=== PATIENT | male | born 1965 | race Caucasian/White ===

== ENCOUNTER → 2018-08-08 | Outpatient (CLI) | payer SELFPAY ==
--- NOTE | 2018-08-08 11:55 | XR ---
EXAMINATION TYPE: XR chest 2V DATE OF EXAM: 08/08/2018 COMPARISON: NONE HISTORY: Cough TECHNIQUE: Frontal and lateral views of the chest are obtained. FINDINGS: There is no focal air space opacity, pleural effusion, or pneumothorax seen. The cardiac silhouette size is within normal limits. The osseous structures are intact. There are prominent spring g volumes with flattening the hemidiaphragms possibly indicative of COPD. Bronchial wall thickening i s noted. IMPRESSION: Correlate for bronchitis.
== END | disposition home or self-care (01) ==
LOC: RADXRYALE 09:59
PROVIDERS: ATTEND Internal Medicine
DX: R05 Cough (principal)
CPT/HCPCS: 71046

== ENCOUNTER → 2018-09-21 | Day surgery (SDC) | payer SELFPAY ==
[2018-09-19 11:18] VITALS: BMI 28.1
[~2018-09-21] MED LIST: LACTATED RINGERS 1,000 ML IV SCH; LIDOCAINE 1% 20 ML VIAL (10MG/ML) FOR IV START INTRADERMA PRN; PROPOFOL 10 MG/ML 20 ML VIAL IV ONE
[2018-09-21 08:42] VITALS: RESP 16; TEMP 97.8
--- NOTE | 2018-09-21 09:06 | P.PCN ---
Date of Procedure: 09/21/18 Procedure(s) Performed: BRIEF HISTORY: Patient is a 54-year-old pleasant male, scheduled for an elective colonoscopy as a part of screening for colon neoplasia. PROCEDURE PERFORMED: Colonoscopy. PREOPERATIVE DIAGNOSIS: Screening For colon cancer. IV sedation per Anesthesia. PROCEDURE: After informed consent was obtained, the patient, was brought into the endoscopy unit. IV sedation was administered by Anesthesia under continuous monitoring. Digital rectal examination was normal. Initially the Olympus CF-160 flexible video colonoscope was then inserted in the rectum, gradually advanced into the cecum without any difficulty. Careful examination was performed as the scope was gradually being withdrawn. Ileocecal valve and the appendiceal orifice were visualized and appeared normal. Prep was excellent. Mucosa of the cecum, ascending colon, transverse colon, descending colon, sigmoid colon, and rectum appeared normal. Scattered sigmoid diverticulosis. Retroflexion was performed in the rectum and no lesions were seen. The patient tolerated the procedure well. IMPRESSION: Normal-appearing colon from rectum to cecum with no evidence of colorectal neoplasia Scattered sigmoid diverticulosis . RECOMMENDATIONS: Findings of this examination were discussed with the patient as well as his family. She was advised to have a repeat screening colonoscopy in 10 years.
[2018-09-21 09:12] VITALS: BP 99/60; PULSE 58
== END | disposition home or self-care (01) ==
LOC: ORWHC2ENDO 07:24 → EDBD 11:35
PROVIDERS: ATTEND Internal Medicine Gastroenterology
DX: Z12.11 Encounter for screening for malignant neoplasm of colon (principal); K57.30 Diverticulosis of large intestine without perforation or abscess without bleeding; F17.210 Nicotine dependence, cigarettes, uncomplicated
CPT/HCPCS: J2704; G0121; 45378

== ENCOUNTER → 2021-08-19 | Outpatient (CLI) | payer OTHER ==
--- NOTE | 2021-08-19 10:33 | XR ---
EXAMINATION TYPE: XR chest 2V DATE OF EXAM: 08/19/2021 COMPARISON: This x-ray 08/08/2018 HISTORY: COPD, smoker, J44.9 TECHNIQUE: Frontal and lateral views of the chest are obtained. FINDINGS: There is no focal air space opacity, pleural effusion, or pneumothorax seen. The cardiac silhouette size is within normal limits. Prominent lung volumes, flattening hemidiaphragms may be ind icative of underlying COPD. The osseous structures are intact, stable, thoracic spondylosis, straight ening of the thoracic spine again noted. IMPRESSION: No acute cardiopulmonary process.
== END | disposition home or self-care (01) ==
LOC: RADXRYALE 10:06
PROVIDERS: ATTEND Internal Medicine
DX: J44.9 Chronic obstructive pulmonary disease, unspecified (principal)
CPT/HCPCS: 71046

== ENCOUNTER → 2021-09-17 | Outpatient (CLI) | payer OTHER ==
--- NOTE | 2021-09-17 12:34 | CTL ---
EXAMINATION TYPE: CT Low Dose Lung DATE OF EXAM ORDERED: 09/17/2021 HISTORY: . Lung cancer screening CT DLP: 107.[address] CTDI: 2.9 mGy Automated exposure control for dose reduction was used. SCREENING VISIT: COMPARISON: None TECHNIQUE: Low dose computed tomography scan was performed through the chest at 1 mm thick sections a nd reconstructed images in multiple planes at 1 mm and [address] DIAGNOSTIC QUALITY: Satisfactory FINDINGS: Biapical pleural thickening is a 5 mm right upper lobe pulmonary nodule. Mild emphysematous changes a re seen. 2 mm left apical nodule. Emphysematous changes are seen. No pleural effusion or pneumothorax . There are bilateral subpleural 1 to 2 mm nodules which have a benign appearance but are too small t o characterize. Coronary artery calcification seen. Aorta of normal caliber. IMPRESSION: 1. 5 mm or less bilateral pulmonary nodules too small to characterize but likely benign. 2. Emphysematous changes. 3. Coronary artery calcification. CT LUNG RAD AND CT CHEST RECOMMENDATION: Lung-Rad 2 Benign Appearance or Behavior: Continue annual sc reening with LDCT in 12 months. S Modifier (other clinically significant findings): S
== END | disposition home or self-care (01) ==
LOC: RADCTMAIN 10:44
PROVIDERS: ATTEND Internal Medicine
DX: I25.10 Atherosclerotic heart disease of native coronary artery without angina pectoris (principal); R91.1 Solitary pulmonary nodule; J43.9 Emphysema, unspecified; Z87.891 Personal history of nicotine dependence
CPT/HCPCS: 71271

== ENCOUNTER → 2023-06-21 | Outpatient (CLI) | payer OTHER ==
--- NOTE | 2023-06-21 17:48 | XR ---
EXAMINATION TYPE: XR Hip Bilateral Complete DATE OF EXAM: 06/21/2023 3:07 PM CLINICAL INDICATION:Male, 59 years old with history of [id number] HIP PAIN,RT SCIATICA; [facility] COMPARISON: None. TECHNIQUE: Bilateral hips in frontal and frog-leg lateral position. FINDINGS: Osseous mineralization appears appropriate. Left hip joint space is maintained. No fracture or disloc ation is seen. There is moderate right hip osteoarthropathy with narrowing of the superior and supero medial joint space and slight sclerosis. Preserved shape of the femoral head. No acute fracture or di slocation. Unremarkable soft tissues. Partially seen degenerative changes of the lower lumbar spine. IMPRESSION: Moderate right hip osteoarthropathy. No acute osseous abnormalities.
--- NOTE | 2023-06-22 09:59 | XR ---
EXAMINATION TYPE: XR lumbosacral spine min 4V DATE OF EXAM: 06/21/2023 3:07 PM CLINICAL INDICATION:Male, 59 years old with history of [id number] HIP PAIN,RT SCIATICA; H COMPARISON: None TECHNIQUE: XR lumbosacral spine min 4V - Frontal, lateral , bilateral oblique and coned in L5-S1 late ral views of the spine. FINDINGS: No evidence of any acute osseous pathology. No evidence of loss of vertebral body height i s seen. There is normal alignment of the lumbar vertebral bodies. Moderate scattered disc space narro wing. Multilevel marginal osteophyte formation throughout the visualized spine. There is facet joint arthropathy throughout the spine. Scattered at least moderate neural foraminal stenosis worse at L5-S 1. IMPRESSION: 1. No acute fracture. 2. Moderate to severe multilevel disc degeneration.
== END | disposition home or self-care (01) ==
LOC: RADXRYALE 14:45
PROVIDERS: ATTEND Internal Medicine
DX: M16.11 Unilateral primary osteoarthritis, right hip (principal); M51.17 Intervertebral disc disorders with radiculopathy, lumbosacral region
CPT/HCPCS: 72110; 73521